=== PATIENT | female | born 1965 | race American Indian/Alaskan Native ===

== ENCOUNTER 2016-05-01 01:16 | Emergency (ER) | payer OTHER ==
[2016-05-01 02:17] VITALS: BP 146/79
--- NOTE | 2016-05-01 05:08 | Emergency Department Report ---
ED ENT HPI - General Chief complaint: Headache Stated complaint: HEADACHE, SORE THROAT Time Seen by Provider: 05/01/16 04:40 Source: patient Mode of arrival: Ambulatory Limitations: No Limitations - History of Present Illness Initial comments: 50-year-old female past medical history hypertension presents with complaint of severe nasal congestion and sinus discomfort approximately 5 days. Patient denies any fever or chills but does say that she is having some yellowish drainage from nose. States she has been using [id number] nasal spray and Zyrtec for her symptoms with minimal to no relief of her symptoms. Patient states she is having headache that radiates from his sinuses to the back of her head, mild sore throat. States that she often gets sinusitis. States that she is a smoker. Denies any cough no chest pain no chest discomfort denies any earache. Onset/Timin -: days(s), week(s) Location: R ear, L ear Severity: moderate Consistency: constant - Related Data Home Medications Medication Instructions Recorded Confirmed Last Taken Lisinopril/Hydrochlorothiazide 1 tab PO QDAY 02/01/16 02/01/16 Unknown [Zestoretic 20-12.5 mg] Previous Rx's Medication Instructions Recorded Last Taken Type Cyclobenzaprine [Flexeril] 10 mg PO BID PRN #20 tablet 02/01/16 Unknown Rx Ibuprofen [Motrin] 400 mg PO Q8H PRN #20 tablet 02/01/16 Unknown Rx Amoxicillin/K Clav Tab [Augmentin 1 tab PO Q12HR #20 tab 05/01/16 Unknown Rx 875 mg] Azelastine 0.1% (Nf) [Astelin (Nf)] 137 mcg NS QDAY PRN #1 bottle 05/01/16 Unknown Rx Fluticasone [Flonase] 1 spray NS QDAY PRN #1 bottle 05/01/16 Unknown Rx Naproxen [Naprosyn TAB] 500 mg PO BID PRN #20 tablet 05/01/16 Unknown Rx Allergies Allergy/AdvReac Type Severity Reaction Status Date / Time No Known Allergies Allergy Verified 01/11/13 03:48 ED Dental HPI - General Chief complaint: Headache Stated complaint: HEADACHE, SORE THROAT Time Seen by Provider: 05/01/16 04:40 Source: patient Mode of arrival: Ambulatory Limitations: No Limitations - Related Data Home Medications Medication Instructions Recorded Confirmed Last Taken Lisinopril/Hydrochlorothiazide 1 tab PO QDAY 02/01/16 02/01/16 Unknown [Zestoretic 20-12.5 mg] Previous Rx's Medication Instructions Recorded Last Taken Type Cyclobenzaprine [Flexeril] 10 mg PO BID PRN #20 tablet 02/01/16 Unknown Rx Ibuprofen [Motrin] 400 mg PO Q8H PRN #20 tablet 02/01/16 Unknown Rx Amoxicillin/K Clav Tab [Augmentin 1 tab PO Q12HR #20 tab 05/01/16 Unknown Rx 875 mg] Azelastine 0.1% (Nf) [Astelin (Nf)] 137 mcg NS QDAY PRN #1 bottle 05/01/16 Unknown Rx Fluticasone [Flonase] 1 spray NS QDAY PRN #1 bottle 05/01/16 Unknown Rx Naproxen [Naprosyn TAB] 500 mg PO BID PRN #20 tablet 05/01/16 Unknown Rx Allergies Allergy/AdvReac Type Severity Reaction Status Date / Time No Known Allergies Allergy Verified 01/11/13 03:48 ED Review of Systems ROS: Stated complaint: HEADACHE, SORE THROAT Other details as noted in HPI ED Past Medical Hx - Past Medical History Previous Medical History?: Yes Hx Hypertension: Yes Additional medical history: MVP, panic attacks. Chronic sinusitis - Surgical History Past Surgical History?: Yes Additional Surgical History: , ovarian cyst removed - Social History Smoking Status: Former Smoker Substance Use Type: Prescribed - Medications Home Medications: Home Medications Medication Instructions Recorded Confirmed Last Taken Type Cyclobenzaprine [Flexeril] 10 mg PO BID PRN #20 tablet 02/01/16 Unknown Rx Ibuprofen [Motrin] 400 mg PO Q8H PRN #20 tablet 02/01/16 Unknown Rx Lisinopril/Hydrochlorothiazide 1 tab PO QDAY 02/01/16 02/01/16 Unknown History [Zestoretic 20-12.5 mg] Amoxicillin/K Clav Tab [Augmentin 1 tab PO Q12HR #20 tab 05/01/16 Unknown Rx 875 mg] Azelastine 0.1% (Nf) [Astelin (Nf)] 137 mcg NS QDAY PRN #1 bottle 05/01/16 Unknown Rx Fluticasone [Flonase] 1 spray NS QDAY PRN #1 bottle 05/01/16 Unknown Rx Naproxen [Naprosyn TAB] 500 mg PO BID PRN #20 tablet 05/01/16 Unknown Rx ED Physical Exam - General Limitations: No Limitations General appearance: alert, in no apparent distress - Head Head exam: Present: atraumatic, normocephalic - Eye Eye exam: Present: normal appearance, PERRL, EOMI - ENT ENT exam: Present: mucous membranes moist, other (maxillary and frontal sinus tenderness on percussion) - Neck Neck exam: Present: normal inspection - Respiratory Respiratory exam: Present: normal lung sounds bilaterally. Absent: respiratory distress - Cardiovascular Cardiovascular Exam: Present: regular rate, normal rhythm. Absent: systolic murmur, diastolic murmur, rubs, gallop - GI/Abdominal GI/Abdominal exam: Present: soft, normal bowel sounds - Extremities Exam Extremities exam: Present: normal inspection - Back Exam Back exam: Present: normal inspection - Neurological Exam Neurological exam: Present: alert, oriented X3 - Psychiatric Psychiatric exam: Present: normal affect, normal mood - Skin Skin exam: Present: warm, dry, intact, normal color. Absent: rash ED Course Vital Signs 05/01/16 02:12 Temperature 98.2 F Pulse Rate 56 L Respiratory 18 Rate Blood Pressure 146/79 Blood Pressure 146/79 [Right] O2 Sat by Pulse 100 Oximetry ED Medical Decision Making - Medical Decision Making A/P: Recurrent sinusitis, sinus headache 1-treat patient empirically with Augmentin twice a day 10 days, Flonase, azelastine nasal sprays, naproxen when necessary 2-patient has reproducible mild tenderness over maxillary sinuses on percussion , this is likely the source of her headache. Will refer patient to ENT and primary care 3-I advised patient to return to the ED for any severe purulent drainage from nose severe fever or chills inability to tolerate by mouth or worsening headache but use of medicines. Patient understood these instructions Critical care attestation.: If time is entered above; I have spent that time in minutes in the direct care of this critically ill patient, excluding procedure time. ED Disposition Clinical Impression: Sinus headache Acute sinusitis Qualifiers: Sinusitis location: maxillary Recurrence: recurrent Qualified Code(s): J01.01 - Acute recurrent maxillary sinusitis Disposition: DISCHARGED TO HOME OR SELFCARE Is pt being admited?: No Does the pt Need Aspirin: No Condition: Stable Instructions: Sinusitis (ED), Acute Headache (ED) Prescriptions: Amoxicillin/K Clav Tab [Augmentin 875 mg] 1 tab PO Q12HR #20 tab Azelastine 0.1% (Nf) [Astelin (Nf)] 137 mcg NS QDAY PRN #1 bottle PRN Reason: Congestion Fluticasone [Flonase] 1 spray NS QDAY PRN #1 bottle PRN Reason: Congestion Naproxen [Naprosyn TAB] 500 mg PO BID PRN #20 tablet PRN Reason: Headache Referrals: PRIMARY CARE, [Primary Care Provider] - 3-5 Days DRE DC MD [Staff Physician] - 3-5 Days [facility] [Outside] - 3-5 Days Forms: Work/School Release Form(ED) Time of Disposition: 05:13
== END 2016-05-01 05:13 | disposition home or self-care (01) ==
LOC: ED 01:16
DX: J01.01 Acute recurrent maxillary sinusitis (principal); R51 Headache; I10 Essential (primary) hypertension; Z87.891 Personal history of nicotine dependence
CPT/HCPCS: 99282

== ENCOUNTER 2020-10-18 19:51 | Emergency (ER) | payer SELFPAY ==
[2020-10-18 22:34] VITALS: BP 167/91
--- NOTE | 2020-10-19 02:39 | XRay Report ---
LUMBAR SPINE 5 VIEWS INDICATION: Back pain after fall. COMPARISON: No relevant prior imaging study available. FINDINGS: The study is limited by the presence of a belt that the patient would not remove. VERTEBRAE: No acute fracture. There is grade 1 anterolisthesis at L4-L5. DISC SPACES: No significant abnormality. FACET JOINTS: Facet hypertrophy is noted bilaterally at L4-L5. SOFT TISSUES: No significant abnormality. ADDITIONAL FINDINGS: No additional significant findings. IMPRESSION: 1. No acute findings. 2. Degenerative changes as above. Signer Name: Musa Green MD Signed: 10/19/2020 2:34 AM Workstation Name: [id number]
--- NOTE | 2020-10-19 02:40 | XRay Report ---
BILATERAL SHOULDERS 6 VIEWS INDICATION / CLINICAL INFORMATION: Pain in shoulders after fall. COMPARISON: None available. FINDINGS: BONES and JOINT(S): No acute fracture or subluxation. No significant arthritis. SOFT TISSUES: No significant abnormality. ADDITIONAL FINDINGS: None. IMPRESSION: 1. No acute findings. Signer Name: Musa Green MD Signed: 10/19/2020 2:35 AM Workstation Name: [id number]
--- NOTE | 2020-10-19 04:14 | Emergency Department Report ---
ED Fall HPI - General Chief Complaint: Neck Pain/Injury Stated Complaint: FALL/SHOULDER HAND PAINS Source: patient Mode of arrival: Ambulatory - History of Present Illness Initial Comments: Patient is a 55-year-old -[place] female with a history of hypertension who presents to the ED with complaint of acute onset persistent severe low back pain and bilateral shoulder pain after she slipped and fell down on a wet floor in a grocery store about 6 hours ago. Patient states that her pain is worse especially with any movement. Patient denies head or neck injuries, dizziness, syncope, nausea and vomiting, abdominal pain, chest pain, shortness of breath, numbness and tingling or weakness of upper and lower extremities bilaterally, loss of consciousness or change in vision and seizures. 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 denies: headache, neck pain, numbness, weakness, chest paint, shortness of breath, abdominal pain, hematuria, unable to walk, lightheaded, vertigo, confusion - Related Data Home Medications Medication Instructions Recorded Confirmed Last Taken Lisinopril/Hydrochlorothiazide 1 tab PO QDAY 02/01/16 02/01/16 Unknown [Zestoretic 20-12.5 mg] Previous Rx's Medication Instructions Recorded Last Taken Type Cyclobenzaprine [Flexeril] 10 mg PO BID PRN #20 tablet 02/01/16 Unknown Rx Ibuprofen [Motrin] 400 mg PO Q8H PRN #20 tablet 02/01/16 Unknown Rx Amoxicillin/K Clav Tab [Augmentin 1 tab PO Q12HR #20 tab 05/01/16 Unknown Rx 875 mg] Azelastine 0.1% (Nf) [Astelin (Nf)] 137 mcg NS QDAY PRN #1 bottle 05/01/16 Unknown Rx Fluticasone [Flonase] 1 spray NS QDAY PRN #1 bottle 05/01/16 Unknown Rx Naproxen [Naprosyn TAB] 500 mg PO BID PRN #20 tablet 05/01/16 Unknown Rx Baclofen 20 mg PO Q12H PRN #24 tablet 10/19/20 Unknown Rx Ibuprofen [Motrin] 800 mg PO Q8HR PRN #30 tablet 10/19/20 Unknown Rx traMADoL [Ultram] 50 mg PO Q6HR PRN #12 tablet 10/19/20 Unknown Rx Allergies Allergy/AdvReac Type Severity Reaction Status Date / Time No Known Allergies Allergy Verified 01/11/13 03:48 ED Review of Systems ROS: Stated complaint: FALL/SHOULDER HAND PAINS Other details as noted in HPI Constitutional: denies: chills, fever Eyes: denies: eye pain, eye discharge, vision change ENT: denies: ear pain, throat pain Respiratory: denies: cough, shortness of breath, wheezing Cardiovascular: denies: chest pain, palpitations Endocrine: no symptoms reported Gastrointestinal: denies: abdominal pain, nausea, vomiting, diarrhea Genitourinary: denies: urgency, dysuria, discharge Musculoskeletal: back pain (Low back pain), arthralgia (Bilateral shoulder pain). denies: joint swelling Skin: denies: rash, lesions Neurological: denies: headache, weakness, paresthesias Psychiatric: denies: anxiety, depression Hematological/Lymphatic: denies: easy bleeding, easy bruising ED Past Medical Hx - Past Medical History Previous Medical History?: Yes Hx Hypertension: Yes Additional medical history: MVP, panic attacks. Chronic sinusitis - Surgical History Past Surgical History?: No Additional Surgical History: , ovarian cyst removed - Social History Smoking Status: Never Smoker Substance Use Type: None - Medications Home Medications: Home Medications Medication Instructions Recorded Confirmed Last Taken Type Cyclobenzaprine [Flexeril] 10 mg PO BID PRN #20 tablet 02/01/16 Unknown Rx Ibuprofen [Motrin] 400 mg PO Q8H PRN #20 tablet 02/01/16 Unknown Rx Lisinopril/Hydrochlorothiazide 1 tab PO QDAY 02/01/16 02/01/16 Unknown History [Zestoretic 20-12.5 mg] Amoxicillin/K Clav Tab [Augmentin 1 tab PO Q12HR #20 tab 05/01/16 Unknown Rx 875 mg] Azelastine 0.1% (Nf) [Astelin (Nf)] 137 mcg NS QDAY PRN #1 bottle 05/01/16 Unknown Rx Fluticasone [Flonase] 1 spray NS QDAY PRN #1 bottle 05/01/16 Unknown Rx Naproxen [Naprosyn TAB] 500 mg PO BID PRN #20 tablet 05/01/16 Unknown Rx Baclofen 20 mg PO Q12H PRN #24 tablet 10/19/20 Unknown Rx Ibuprofen [Motrin] 800 mg PO Q8HR PRN #30 tablet 10/19/20 Unknown Rx traMADoL [Ultram] 50 mg PO Q6HR PRN #12 tablet 10/19/20 Unknown Rx ED Physical Exam - General Limitations: No Limitations General appearance: alert, in no apparent distress - Head Head exam: Present: atraumatic, normocephalic, normal inspection - Eye Eye exam: Present: normal appearance, PERRL, EOMI Pupils: Present: normal accommodation - ENT ENT exam: Present: normal exam, normal orophraynx, mucous membranes moist, TM's normal bilaterally, normal external ear exam - Neck Neck exam: Present: normal inspection, full ROM - Respiratory Respiratory exam: Present: normal lung sounds bilaterally. Absent: respiratory distress, wheezes, rales, rhonchi, stridor, chest wall tenderness, accessory muscle use - Cardiovascular Cardiovascular Exam: Present: regular rate, normal rhythm, normal heart sounds. Absent: systolic murmur, diastolic murmur, rubs, gallop - GI/Abdominal GI/Abdominal exam: Present: soft, normal bowel sounds. Absent: tenderness, guarding, rebound, hyperactive bowel sounds, hypoactive bowel sounds, organomegaly - Extremities Exam Extremities exam: Present: normal inspection, full ROM, tenderness (Palpable bilateral shoulder tenderness), normal capillary refill - Back Exam Back exam: Present: normal inspection, full ROM, tenderness (Palpable lumbosacral paraspinal musculoskeletal tenderness), muscle spasm, paraspinal tenderness. Absent: CVA tenderness (R), CVA tenderness (L), vertebral tenderness - Neurological Exam Neurological exam: Present: alert, oriented X3, CN II-XII intact, normal gait, reflexes normal - Psychiatric Psychiatric exam: Present: normal affect, normal mood, anxious - Skin Skin exam: Present: warm, dry, intact, normal color. Absent: rash ED Course Vital Signs 10/18/20 22:29 Temperature 98.4 F Pulse Rate 67 Respiratory 18 Rate Blood Pressure 167/91 O2 Sat by Pulse 97 Oximetry ED Medical Decision Making - Radiology Data Radiology results: report reviewed, image reviewed The bilateral shoulder x-rays showed no acute fractures or subluxations. The L-spine x-ray showed no acute fractures or subluxations but degenerative lumbar disc disease. - Medical Decision Making This is a 55-year-old -[place] female with a history of hypertension who presents to the ED with complaint of acute onset persistent severe low back pain and bilateral shoulder pain after she slipped and fell down on a wet floor in a grocery store about 6 hours ago. Patient states that her pain is worse especially with any movement. In the ED, patient is alert and oriented x3 and is not in any distress. Patient however appears to be in significant pain. Patient was treated for pain in the ED and bilateral shoulder x-ray showed no acute fractures or subluxation. The L-spine x-ray showed no acute fractures or subluxation but chronic degenerative lumbar disc disease. - Differential Diagnosis Back injury; shoulder sprain; muscle spasm; muscle strain Critical care attestation.: If time is entered above; I have spent that time in minutes in the direct care of this critically ill patient, excluding procedure time. ED Disposition Clinical Impression: Spasm of muscle of lower back, Strain of unspecified muscle, fascia and tendon at wrist and hand level, left hand, initial encounter Sprain of shoulder Qualifiers: Encounter type: initial encounter Shoulder sprain type: unspecified sprain Laterality: unspecified laterality Qualified Code(s): S43.409A - Unspecified sprain of unspecified shoulder joint, initial encounter Disposition: DC-01 TO HOME OR SELFCARE Is pt being admited?: No Does the pt Need Aspirin: No Condition: Stable Instructions: Muscle Cramps and Spasms, [id number], Back Injury Prevention, [id number], Muscle Strain, [id number] Additional Instructions: The L-spine x-ray showed no acute fractures or subluxations but chronic degenerative lumbar disc disease. The bilateral shoulder x-rays showed no acute fractures or subluxations. Therefore your injuries are likely musculoskeletal following the fall. Take pain medications with food, drink plenty of fluids and follow-up with your primary care physician in 7 to 10 days for reevaluation. Return to the ED immediately if symptoms get worse. Prescriptions: Baclofen 20 mg PO Q12H PRN #24 tablet PRN Reason: Muscle Spasm Ibuprofen [Motrin] 800 mg PO Q8HR PRN #30 tablet PRN Reason: Pain , Severe (7-10) traMADoL [Ultram] 50 mg PO Q6HR PRN #12 tablet PRN Reason: Pain Referrals: [facility] [Provider Group] - 3-5 Days Forms: Work/School Release Form(ED) Time of Disposition: 04:15 Print Language: WELSH
== END 2020-10-19 04:34 | disposition home or self-care (01) ==
LOC: ED 19:51
DX: S66.912A Strain of unspecified muscle, fascia and tendon at wrist and hand level, left hand, initial encounter (principal); S43.409A Unspecified sprain of unspecified shoulder joint, initial encounter; M62.830 Muscle spasm of back; I10 Essential (primary) hypertension; W01.0XXA Fall on same level from slipping, tripping and stumbling without subsequent striking against object, initial encounter; Y93.89 Activity, other specified; Y92.89 Other specified places as the place of occurrence of the external cause; Y99.8 Other external cause status
CPT/HCPCS: 72100; 99283